=== PATIENT | male | born 2005 | race Caucasian/White ===

== ENCOUNTER → 2024-07-12 | Outpatient (BNVA) | payer OTHER, MEDICAID, SELFPAY | END | disposition home or self-care (01) | PROVIDERS: PCP Nurse Practitioner Family; Referring Provider Nurse Practitioner Family; Visit Provider Urology | DX: N47.8 Other disorders of prepuce (principal); N47.1 Phimosis | CPT/HCPCS: 81003; 99202; G0463 ==

== ENCOUNTER 2024-09-12 07:50 | Day surgery (SDC) | payer OTHER, MEDICAID, SELFPAY ==
[2024-09-11 10:43] VITALS: BMI 23.2
[2024-09-12] VITALS (8 sets, daily range): BP systolic 127–143; BP diastolic 57–82; PULSE 51–76; RESP 12–17; TEMP 36.2–36.6; O2SAT 99–100; BMI 22.8
--- NOTE | 2024-09-12 12:02 | SUR.PHASEI ---
received pt and report from JOANNE Schulz and JOHAN Salgado. Pt asleep at this time. vss, no distress noted. dressing CDI to penis, dried blood noted to the surgical site, monitoring continuously.. IV intact, no s/s of infiltration and redness noted to site.
--- NOTE | 2024-09-12 12:12 | PD.SUROPNT ---
Date of Procedure 09/12/24 Pre Op Diagnosis Redundant prepuce with a long frenulum Post Op Diagnosis Same Procedure Release of frenulum and circumcision Findings Redundant prepuce and long frenulum Procedure Description Indication for procedure this is a 19-year-old male who is seen in urology office he had a redundant prepuce long frenulum if desired circumcision procedure and complications were discussed with the patient in great detail informed consent is obtained Patient was brought to the operating room in a satisfactory condition after appropriate premedication he was appropriately identified by surgeon and operating room staff site scope and indications of the procedure were reconfirmed with the patient and informed consent is obtained General anesthesia was given uneventfully parts were prepped and draped in the usual sterile fashion. Next skin incision was made in the skin aspect of the prepuce parallel to the alvarado of the glans penis leaving a cuff of about 7 to 8 mm it was carried down to the fascial there. Skin was retracted and another incision was made on the mucosal aspect of the prepuce parallel to the alvarado of glans penis leaving a cuff of 7 to 8 mm. It was carried down to the fascial layers. Next the skin between the 2 incision was excised skin to mucosa was approximated with the 3-0 chromic in interrupted fashion sterile dressings were applied patient after having tolerated the procedure well moved to recovery room in a satisfactory condition to be discharged home with full postoperative instructions verbally as well as in writing to be followed in urology office thank you Anesthesia GETA Pathology / specimen None Estimated Blood Loss 5 Condition Stable Surgeon Forrest Justice MD Surgical Staff Operation Date: 09/12/24 10:00 Case Staff LOSS PREVENTION GUARD: Naomi Patterson
--- NOTE | 2024-09-12 12:40 | SUR.PHASEII ---
Received report on pt. s/p surgery from Carin RUBIO. Pt. is resting with eyes closed, no c/o pain or nausea at this time, VSS.
--- NOTE | 2024-09-12 12:40 | SUR.PHASEI ---
pt arousable to voice, vss, surgical site remains free of drainage. same amount of dried blood around surgical site, no further bleeding noted. pt denies any pain. Dr Justice at bedside at this time and he stated he would like to assess the dressing before discharge.
--- NOTE | 2024-09-12 13:30 | SUR.PHASEII ---
Pt. meets criteria for discharge, VSS, dressing to penis CDI, Dr. Zuñiga prior to discharge, IV discontinued without complications, provided discharge instructions to pt. and pt.'s mother with use of order tracer services, verbalized understanding. Pt. escorted to vehicle via w/c with all of belongings by staff.
== END 2024-09-12 13:30 | disposition home or self-care (01) ==
PROVIDERS: Referring Provider Urology; Visit Provider Urology
PROC: (CPT 54161; principal; 2024-09-12 09:45)
DX: N47.1 Phimosis (principal); N47.8 Other disorders of prepuce
CPT/HCPCS: 54161; A4217; A4649; J0131; J1100; J1885; J2405; J2704; J3010; J3490; A9270